=== PATIENT | female | born 1985 | race Caucasian/White ===

== ENCOUNTER 2017-07-15 09:35 | Emergency (ER) | payer BC ==
[~2017-07-15] VITALS: Ht 167.6 cm; Wt 126.4 kg
[~2017-07-15 09:35] MED LIST: Motrin PO
[2017-07-15 10:51] LABS: HEMATOCRIT 41.2 % (36.0-46.0); HEMOGLOBIN 14.5 G/DL (11.9-15.5); MCH 29.7 PG (29.0-34.0); MCHC 35.2 G/DL (30.0-36.0); MCV 84.4 FL (83-99); PLATELET COUNT 246 K/uL (156-360); RBC DIS.WIDTH-CV 12.9 % (11.8-14.6); RBC DIS.WIDTH-SD 39.5 % (39-53); RED BLOOD COUNT 4.88 M/uL (3.80-5.20); WHITE BLOOD COUNT 8.5 K/uL (4.1-10.2)
[2017-07-15 10:59] LABS: CHLORIDE 107 mEq/L (99-109); POTASSIUM 4.3 mEq/L (3.7-5.4); SODIUM 140 mEq/L (136-147)
[2017-07-15 11:01] LABS: GLUCOSE 87 mg/dL (70-99)
[2017-07-15 11:04] LABS: CREATININE 0.8 mg/dL (0.6-1.3); GFR ESTIMATE (CALCULATED) > 59 mL/min/
[2017-07-15 11:05] LABS: UREA NITROGEN (BUN) 19 mg/dL (9-23)
[2017-07-15 11:15] LABS: TROP-I INTERPRETATION NEGATIVE; TROPONIN-I < 0.01 ng/mL (0.0-0.30)
[2017-07-15] MEDS ORDERED: BUPROPION XL150 MG PO (12:49)
[2017-07-15] MEDS ORDERED: TOPAMAX50 MG PO (12:50)
[2017-07-15] MEDS ORDERED: CLONAZEPAM0.5 MG PO (12:51)
[2017-07-15] MEDS ORDERED: PROZAC40 MG PO (12:51)
[2017-07-15 13:30] LABS: TROP-I INTERPRETATION NEGATIVE; TROPONIN-I < 0.01 ng/mL (0.0-0.30)
[2017-07-15 13:57] LABS: D-DIMER ELISA < 150.00 ng/mLDDU (<230)
[2017-07-15] MEDS ORDERED: PROTONIX40 MG PO (14:11)
[2017-07-15 14:26] VITALS: BP 106/74
== END 2017-07-15 14:38 | disposition home or self-care (01) ==
LOC: EME 09:35
PROVIDERS: Emergency Medicine
DX: R07.89 Other chest pain (principal); F41.9 Anxiety disorder, unspecified; Z97.5 Presence of (intrauterine) contraceptive device
CPT/HCPCS: 71046; 80048; 84484; 85027; 85379; 93005; 99281; 99284